=== PATIENT | female | born 1990 | race African-American/Black ===

== ENCOUNTER 2018-01-12 11:29 | Observation (INO) | payer MEDICAID ==
[~2018-01-12] VITALS: Ht 162.6 cm; Wt 90.7 kg
[2018-01-12] MEDS ORDERED: PNV1TABL76 PO (12:20)
[2018-01-12] MEDS ORDERED: PREN-99 PO (12:20)
[2018-01-12] MEDS ORDERED: FOLI0.4T2 MT (12:23)
[2018-01-12] MEDS ORDERED: CALC-1042 PO (12:23)
== END 2018-01-12 14:15 | disposition home or self-care (01) ==
LOC: L&D 11:29
PROVIDERS: ADMIT Obstetrics & Gynecology; ATTEND Obstetrics & Gynecology
DX: O62.9 Abnormality of forces of labor, unspecified (principal); O99.513 Diseases of the respiratory system complicating pregnancy, third trimester; J45.909 Unspecified asthma, uncomplicated; Z3A.29 29 weeks gestation of pregnancy
CPT/HCPCS: G0378 ×2; 99281

== ENCOUNTER 2018-03-08 01:43 | Observation (INO) | payer MEDICAID ==
[~2018-03-08 01:43] MED LIST: CALC-1042 PO; FOLI0.4T2 MT; PNV1TABL76 PO; PREN-99 PO
== END 2018-03-08 02:15 | disposition home or self-care (01) ==
LOC: 8 EST LDRP 01:43
PROVIDERS: ADMIT Obstetrics & Gynecology; ATTEND Obstetrics & Gynecology
DX: O62.9 Abnormality of forces of labor, unspecified (principal); O42.913 Preterm premature rupture of membranes, unspecified as to length of time between rupture and onset of labor, third trimester; Z3A.37 37 weeks gestation of pregnancy
CPT/HCPCS: 99281; G0378

== ENCOUNTER 2018-03-28 07:15 | Observation (INO) | payer MEDICAID ==
[~2018-03-28] VITALS: Ht 162.6 cm; Wt 89.8 kg
[~2018-03-28 07:15] MED LIST changes: -PREN-99 PO
== END 2018-03-28 08:35 | disposition home or self-care (01) ==
LOC: L&D 07:15
PROVIDERS: ADMIT Specialist; ATTEND Specialist
DX: O62.9 Abnormality of forces of labor, unspecified (principal); O48.0 Post-term pregnancy; O26.893 Other specified pregnancy related conditions, third trimester; N89.8 Other specified noninflammatory disorders of vagina; Z3A.40 40 weeks gestation of pregnancy
CPT/HCPCS: 99281; G0378

== ENCOUNTER 2018-03-30 02:59 | Inpatient (IN) | payer MEDICAID ==
[~2018-03-30] VITALS: Ht 162.6 cm; Wt 89.8 kg
[2018-03-30] MEDS ORDERED: DEXT 5%/LR + PITOCIN 20UNITS/L 1,000 ML IV SCH ×2 (04:05→19:54)
[2018-03-30] MEDS ORDERED: METHYLERGONOVINE MALEATE 0.2 MG/ML IM PRN ×2 (04:15→20:00)
[2018-03-30] MEDS ORDERED: BUTORPHANOL TARTRATE 2 MG/ML VIAL IV PRN (04:15)
[2018-03-30] MEDS ORDERED: LIDOCAINE HCL 1% 20ML VIAL (Pyxis) INJ INFIL SCH (04:15)
[2018-03-30] MEDS ORDERED: MISOPROSTOL 100MCG TABLET VG SCH (04:15)
[2018-03-30] MEDS ORDERED: CARBOPROST TROMETHAMINE 250 MCG/ML AMPUL IM PRN (04:15)
[2018-03-30] MEDS ORDERED: NALOXONE HCL 0.4 MG/ML 1ML VIAL IM PRN (04:15)
[2018-03-30] MEDS: LACTATED RINGERS 1,000 ML IV SCH ×3 (04:46→09:31)
[2018-03-30] MEDS: CLINDAMYCIN 900 MG in DEXTROSE 5% WATER 50 ML IV SCH ×2 (04:52→17:13)
[2018-03-30 04:55] LABS: BASOPHILS % 0.3 % (0.0-2.0); EOSINOPHILS % 0.2 % (0.0-5.0); HEMATOCRIT. 37.1 % (36.0-48.0); HEMOGLOBIN. 11.5 g/dL (12.0-16.0); LYMPHOCYTES % 16.7 % (20.0-50.0); MEAN CORPUSCULAR HEMOGLOBIN 22.9 pg (28.0-32.0); MEAN CORPUSCULAR VOLUME 73.8 fL (81.0-99.0); MEAN PLATELET VOLUME 10.2 fl (7.4-10.4); MONOCYTES % 11.2 % (2.0-8.0); NEUTROPHILS % 71.6 % (40.0-76.0); PLATELET 240 x1000/uL (130-400); RED BLOOD CELL COUNT 5.03 mill/uL (4.2-5.4)
[2018-03-30 05:18] LABS: PARTIAL THROMBOPLASTIN TIME 26.7 sec (23.4-31.0)
[2018-03-30 05:54] LABS: HEPATITIS B SURFACE ANTIGEN NEGATIVE
[2018-03-30] MEDS ORDERED: BUPIVACAINE HCL/NS/PF EPIDURAL 100 ML EP ONE (09:03)
[2018-03-30] MEDS ORDERED: LIDOCAINE HCL 2%/EPINEPHRINE/PF 10 ML VIAL ONE (11:51)
[2018-03-30 12:01] LABS: CLARITY URINE CLEAR (CLEAR); COLOR URINE YELLOW (YELLOW); KETONES URINE 4+ (NEGATIVE); LEUKOCYTE ESTERASE URINE NEGATIVE (NEGATIVE); NITRITE URINE NEGATIVE (NEGATIVE); OCCULT BLOOD URINE NEGATIVE (NEGATIVE); PH URINE 5.5 (4.5-8.0); PROTEIN URINE NEGATIVE (NEGATIVE); SPECIFIC GRAVITY URINE 1.028 (1.005-1.030)
[2018-03-30 12:50] LABS: *AMPHETAMINES SCREEN URINE NEGATIVE (NEGATIVE); *BARBITURATES SCREEN URINE NEGATIVE (NEGATIVE); *BENZODIAZEPINES SCREEN URINE NEGATIVE (NEGATIVE); METHADONE URINE SCREEN NEGATIVE (NEGATIVE)
[2018-03-30 12:51] LABS: CANNABINOID URINE SCREEN NEGATIVE (NEGATIVE); OPIATES URINE SCREEN NEGATIVE (NEGATIVE); PHENCYCLIDINE URINE SCREEN NEGATIVE (NEGATIVE)
[2018-03-30 12:52] LABS: *COCAINE SCREEN URINE NEGATIVE (NEGATIVE)
[2018-03-30] MEDS ORDERED: IBUPROFEN 400MG TABLET PO PRN (20:00)
[2018-03-30] MEDS ORDERED: LANOLIN OINT 0.25 GM TUBE TOP PRN (20:00)
[2018-03-30] MEDS ORDERED: RHO(D) IMMUNE GLOBULIN 300 MCG/SYR IM PRN (20:00)
[2018-03-30] MEDS ORDERED: IBUPROFEN 800MG TABLET PO PRN (20:00)
[2018-03-30] MEDS ORDERED: DEXT 5%/LR + PITOCIN 20UNITS/L 1,000 ML IV ONE (20:41)
[2018-03-30] MEDS: DOCUSATE SODIUM 100MG CAPSULE PO SCH (21:00)
[2018-03-30 21:19] VITALS: BP 110/68
[2018-03-30 21:48] VITALS: BP 91/51
[2018-03-30 22:50] VITALS: BP 112/52
[2018-03-31 00:13] VITALS: BP 91/45
[2018-03-31 04:30] VITALS: BP 104/58
[2018-03-31 07:05] LABS: BASOPHILS % 0.2 % (0.0-2.0); EOSINOPHILS % 0.1 % (0.0-5.0); HEMATOCRIT. 30.4 % (36.0-48.0); HEMOGLOBIN. 9.7 g/dL (12.0-16.0); LYMPHOCYTES % 12.3 % (20.0-50.0); MEAN CORPUSCULAR HEMOGLOBIN 23.4 pg (28.0-32.0); MEAN CORPUSCULAR VOLUME 73.3 fL (81.0-99.0); MEAN PLATELET VOLUME 9.8 fl (7.4-10.4); MONOCYTES % 8.9 % (2.0-8.0); NEUTROPHILS % 78.5 % (40.0-76.0); PLATELET 207 x1000/uL (130-400); RED BLOOD CELL COUNT 4.14 mill/uL (4.2-5.4); RED CELL DISTRIBUTION WIDTH 15.6 % (11.6-14.6)
[2018-03-31] MEDS: PRENATAL VIT/FE FUMARATE/FA TABLET PO SCH (10:22)
[2018-03-31 16:00] VITALS: BP 88/54
[2018-03-31 20:00] VITALS: BP 102/64
[2018-03-31] MEDS: DOCUSATE SODIUM 100MG CAPSULE PO SCH ×2 (21:33→21:34)
[2018-04-01 04:00] VITALS: BP 105/65
[2018-04-01 07:47] VITALS: BP 101/68
[2018-04-01] MEDS ORDERED: TETANUS, DIPHTHERIA, PERTUSSIS VAC/PF 0.5ML (>7YR OLD) IM ONE (09:00)
[2018-04-01] MEDS: PRENATAL VIT/FE FUMARATE/FA TABLET PO SCH (10:13)
== END 2018-04-01 11:20 | disposition home or self-care (01) | DRG 560 ==
LOC: OBSVTOIN 02:59 → 8 EST LDRP 02:59 → 8EST 21:00
PROVIDERS: ADMIT Obstetrics & Gynecology; ATTEND Obstetrics & Gynecology
PROC: 10E0XZZ Delivery of Products of Conception, External Approach (ICD-10-PCS; principal; 2018-03-30)
PROC: 3E0R3BZ Introduction of Anesthetic Agent into Spinal Canal, Percutaneous Approach (ICD-10-PCS; 2018-03-30)
PROC: 00HU33Z Insertion of Infusion Device into Spinal Canal, Percutaneous Approach (ICD-10-PCS; 2018-03-30)
DX: O77.0 Labor and delivery complicated by meconium in amniotic fluid (principal); D62 Acute posthemorrhagic anemia; O90.81 Anemia of the puerperium; O48.0 Post-term pregnancy; Z37.0 Single live birth; Z3A.40 40 weeks gestation of pregnancy; Z88.0 Allergy status to penicillin
CPT/HCPCS: 36415; 80305; 86592; 86703; 86762; 86850; 86900; 87340; 90715; 99281; J0595; J2590; J3490; J7060; A4315

== ENCOUNTER 2022-08-21 00:36 | Emergency (ER) | payer OTHER, MEDICAID ==
[~2022-08-21] VITALS: Ht 162.6 cm; Wt 89.0 kg
[2022-08-21] MEDS ORDERED: ACETAMINOPHEN 325MG TABLET PO NR (02:40)
[2022-08-21] MEDS ORDERED: ONDANSETRON 4MG ODT PO NR (02:40)
[2022-08-21 02:48] LABS: CLARITY URINE CLEAR (CLEAR); COLOR URINE DARK YELLOW (YELLOW); KETONES URINE NEGATIVE (NEGATIVE); LEUKOCYTE ESTERASE URINE NEGATIVE (NEGATIVE); NITRITE URINE NEGATIVE (NEGATIVE); OCCULT BLOOD URINE 3+ (NEGATIVE); PROTEIN URINE 1+ (NEGATIVE); SPECIFIC GRAVITY URINE 1.034 (1.005-1.030)
[2022-08-21 03:00] LABS: *AMPHETAMINES SCREEN URINE NEGATIVE (NEGATIVE); *BARBITURATES SCREEN URINE NEGATIVE (NEGATIVE); *BENZODIAZEPINES SCREEN URINE NEGATIVE (NEGATIVE); *COCAINE SCREEN URINE NEGATIVE (NEGATIVE); METHADONE URINE SCREEN NEGATIVE (NEGATIVE); OPIATES URINE SCREEN NEGATIVE (NEGATIVE); PHENCYCLIDINE URINE SCREEN NEGATIVE (NEGATIVE)
[2022-08-21 03:01] LABS: CANNABINOID URINE SCREEN PRESUMTIVE POSITIVE (NEGATIVE)
[2022-08-21 03:15] LABS: CHLORIDE 108 mEq/L (98-107)
[2022-08-21 03:23] LABS: B-HCG QUANTITATIVE < 1 mIU/mL (<3); BASOPHILS % 0.8 % (0.0-2.0); EOSINOPHILS % 4.7 % (0.0-5.0); ETHANOL BLOOD < 10 mg/dL (-10); HEMATOCRIT. 38.2 % (36.0-48.0); HEMOGLOBIN. 12.4 g/dL (12.0-16.0); LYMPHOCYTES % 38.8 % (20.0-50.0); MEAN CORPUSCULAR HEMOGLOBIN 24.7 pg (28.0-32.0); MEAN CORPUSCULAR VOLUME 76.4 fL (81.0-99.0); MEAN PLATELET VOLUME 9.3 fl (7.4-10.4); MONOCYTES % 9.5 % (2.0-8.0); NEUTROPHILS % 46.2 % (40.0-76.0); PLATELET 333 x1000/uL (130-400); RED CELL DISTRIBUTION WIDTH 16.4 % (11.6-14.6)
[2022-08-21] MEDS ORDERED: NAPR-681 MT (05:14)
[2022-08-21] MEDS ORDERED: ONDA4TAB50 PO (05:14)
[2022-08-21 05:47] VITALS: BP 133/81
== END 2022-08-21 05:49 | disposition home or self-care (01) ==
LOC: ER 00:36
DX: R10.30 Lower abdominal pain, unspecified (principal); R55 Syncope and collapse; R11.2 Nausea with vomiting, unspecified; D25.9 Leiomyoma of uterus, unspecified; Z88.0 Allergy status to penicillin
CPT/HCPCS: 36415; 71045; 76830; 76856; 80053; 80305; 80320; 81003; 81025; 83690; 84484; 84702; 85025; 93005; 99285; Q0162; G0480

== ENCOUNTER 2022-11-08 13:02 | Emergency (ER) | payer MEDICAID ==
[~2022-11-08] VITALS: Ht 165.1 cm; Wt 86.0 kg
[~2022-11-08 13:02] MED LIST changes: -CALC-1042 PO; -FOLI0.4T2 MT; +NAPR-681 MT; +ONDA4TAB50 PO; -PNV1TABL76 PO
[2022-11-08 13:08] VITALS: BP 111/64; RESP 20; TEMP 98; O2SAT 100
[2022-11-08 14:05] LABS: BASOPHILS % 0.6 % (0.0-2.0); DIFFERENTIAL COMMENT 0; EOSINOPHILS % 3.2 % (0.0-5.0); HEMOGLOBIN. 11.4 g/dL (12.0-16.0); LYMPHOCYTES % 27.2 % (20.0-50.0); MEAN CORPUSCULAR HEMOGLOBIN 24.3 pg (28.0-32.0); MEAN CORPUSCULAR HGB CONC 30.9 g/dL (31.0-37.0); MEAN CORPUSCULAR VOLUME 78.8 fL (81.0-99.0); MEAN PLATELET VOLUME 9.4 fl (7.4-10.4); MONOCYTES % 9.7 % (2.0-8.0); NEUTROPHILS % 59.3 % (40.0-76.0); PLATELET 302 x1000/uL (130-400); RED BLOOD CELL COUNT 4.69 mill/uL (4.2-5.4); RED CELL DISTRIBUTION WIDTH 16.4 % (11.6-14.6); WHITE BLOOD COUNT 8.3 x1000/uL (4.5-11.0)
[2022-11-08 14:09] LABS: CHLORIDE 109 mEq/L (98-107); INDEX HEMOLYSI 1 (1-3); INDEX ICTERIC 1 (1-4); INDEX LIPEMIC 1 (1-3); POTASSIUM 3.8 mEq/L (3.5-5.1); SODIUM 138 mEq/L (136-145)
[2022-11-08 14:16] LABS: CLARITY URINE CLOUDY (CLEAR); COLOR URINE YELLOW (YELLOW); GLUCOSE URINE NEGATIVE (NEGATIVE); KETONES URINE NEGATIVE (NEGATIVE); LEUKOCYTE ESTERASE URINE NEGATIVE (NEGATIVE); NITRITE URINE NEGATIVE (NEGATIVE); OCCULT BLOOD URINE NEGATIVE (NEGATIVE); PROTEIN URINE NEGATIVE (NEGATIVE); SPECIFIC GRAVITY URINE 1.031 (1.005-1.030)
[2022-11-08 14:21] LABS: ALANINE AMINOTRANSFERASE 19 IU/L (13-61); ALBUMIN 3.3 g/dL (3.4-5.0); ASPARTATE AMINOTRANSFERASE 11 IU/L (15-37); BILIRUBIN TOTAL 0.2 mg/dL (0.1-1.0); CALCIUM 8.4 mg/dL (8.5-10.1); CARBON DIOXIDE 24 mEq/L (21-32); CREATININE 0.8 mg/dL (0.6-1.3); GLUCOSE 116 mg/dL (70-105); PROTEIN TOTAL 7.3 g/dL (6.0-8.3); UREA NITROGEN BLOOD 11 mg/dL (7-21)
[2022-11-08 14:27] LABS: MUCUS URINE 1+ /lpf (< = 2+); SQUAMOUS EPITHELIAL CELL URINE 1+ /lpf (RARE/1+)
[2022-11-08 14:28] LABS: TROPONIN I HIGH SENSITIVITY < 4 ng/L (<54)
[2022-11-08 14:28] LABS: BACTERIA URINE 1+
[2022-11-08 14:31] LABS: RBC URINE NONE SEEN /hpf (0-2); WBC URINE 0-2 /hpf (0-2)
[2022-11-08 17:32] VITALS: PULSE 88
== END 2022-11-08 17:33 | disposition home or self-care (01) ==
LOC: ER 13:38
DX: I49.9 Cardiac arrhythmia, unspecified (principal); J45.909 Unspecified asthma, uncomplicated; Z88.0 Allergy status to penicillin
CPT/HCPCS: 36415; 71045; 80053; 81003; 81025; 84484; 85025; 93005; 99285